=== PATIENT | female | born 1955 | race Caucasian/White ===

== ENCOUNTER 2018-08-30 07:08 | Outpatient (CLI) | payer OTHER | END 2018-08-30 07:20 | disposition home or self-care (01) | LOC: TOM 07:08 | DX: K43.5 Parastomal hernia without obstruction or gangrene (principal) | CPT/HCPCS: 74178; Q9965 ==

== ENCOUNTER 2019-12-01 08:57 | Day surgery (SDC) | payer OTHER | END 2019-12-01 14:20 | disposition home or self-care (01) | LOC: AMB-ENDOS 08:57 | DX: D12.0 Benign neoplasm of cecum (principal); K64.1 Second degree hemorrhoids ==

== ENCOUNTER → 2019-12-28 06:00 | Outpatient (CLI) | payer OTHER ==
[~2019-12-28] VITALS: Ht 149.9 cm; Wt 104.3 kg
[~2019-12-28 06:00] MED LIST: GABAPENTIN600 MG PO; GLUCOSAMINE H1500 MG PO; HYDRODIURIL12.5 MG PO; OPTIFLEX-C400 MG PO; PRILOSEC OTC20 MG PO; VITAMIN D32000 UNI2 PO; WELLBUTRIN SR150 MG PO
== END | disposition home or self-care (01) ==
LOC: RAD 06:00 → SURH 01-02 10:30 → O/R 01-02 10:30 → EDSTATUS 01-02 10:30
DX: K57.20 Diverticulitis of large intestine with perforation and abscess without bleeding (principal); Z93.3 Colostomy status; K57.32 Diverticulitis of large intestine without perforation or abscess without bleeding

== ENCOUNTER 2020-03-11 09:32 | Inpatient (IN) | payer OTHER ==
[~2020-03-11] VITALS: Ht 149.9 cm; Wt 107.5 kg
[2020-03-18] MEDS ORDERED: LOSARTAN POTASS50 MG PO (12:34)
[2020-03-18] MEDS ORDERED: ZANAFLEX2 M1 PO (12:34)
[2020-03-18] MEDS ORDERED: MAGNESIUM400 M1 PO (12:35)
[2020-03-21] MEDS ORDERED: LORAZEPAM0.5 MG PO (08:14)
[2020-03-21] MEDS ORDERED: VITAMIN C500 M1 PO (08:15)
[2020-03-21] MEDS ORDERED: OMEPRAZOLE20 MG PO (08:15)
[2020-03-21] MEDS ORDERED: ZANAFLEX2 MG (08:18)
[2020-03-21] MEDS ORDERED: DICLOFENAC POTA50 MG (08:20)
== END 2020-03-29 23:12 | disposition home or self-care (01) | DRG 330 ==
LOC: SURH 03-18 11:15 → O/R 03-20 05:56 → SURG 03-20 05:56 → SURH 03-20 11:15 → SURG 03-20 15:08 → SURH 03-24 14:21
PROVIDERS: ADMIT Colon & Rectal Surgery; ATTEND Colon & Rectal Surgery
PROC: 0DTP4ZZ Resection of Rectum, Percutaneous Endoscopic Approach (ICD-10-PCS; principal; 2020-03-21)
PROC: 0DBN4ZZ Excision of Sigmoid Colon, Percutaneous Endoscopic Approach (ICD-10-PCS; 2020-03-21)
PROC: 0WQF4ZZ Repair Abdominal Wall, Percutaneous Endoscopic Approach (ICD-10-PCS; 2020-03-21)
PROC: 0DSN4ZZ Reposition Sigmoid Colon, Percutaneous Endoscopic Approach (ICD-10-PCS; 2020-03-21)
PROC: 5A09557 Assistance with Respiratory Ventilation, Greater than 96 Consecutive Hours, Continuous Positive Airway Pressure (ICD-10-PCS; 2020-03-21)
PROC: 0DH67UZ Insertion of Feeding Device into Stomach, Via Natural or Artificial Opening (ICD-10-PCS; 2020-03-24)
PROC: 02HV33Z Insertion of Infusion Device into Superior Vena Cava, Percutaneous Approach (ICD-10-PCS; 2020-03-24)
PROC: CB2YYZZ Tomographic (Tomo) Nuclear Medicine Imaging of Respiratory System using Other Radionuclide (ICD-10-PCS; 2020-03-24)
DX: Z43.3 Encounter for attention to colostomy (principal); E87.2 Acidosis; J98.11 Atelectasis; K56.7 Ileus, unspecified; E66.01 Morbid (severe) obesity due to excess calories; K57.30 Diverticulosis of large intestine without perforation or abscess without bleeding; K43.2 Incisional hernia without obstruction or gangrene

== ENCOUNTER 2020-12-06 08:02 | Day surgery (SDC) | payer OTHER ==
[~2020-12-06 08:02] MED LIST changes: +DICLOFENAC POTA50 MG; +LORAZEPAM0.5 MG PO; +LOSARTAN POTASS50 MG PO; +MAGNESIUM400 M1 PO; +OMEPRAZOLE20 MG PO; +VITAMIN C500 M1 PO; +ZANAFLEX2 M1 PO; +ZANAFLEX2 MG
== END 2020-12-06 13:55 | disposition home or self-care (01) ==
LOC: AMB-ENDOS 08:02
PROVIDERS: ATTEND Colon & Rectal Surgery
DX: K57.32 Diverticulitis of large intestine without perforation or abscess without bleeding (principal); K64.0 First degree hemorrhoids; Z20.822 Contact with and (suspected) exposure to COVID-19